=== PATIENT | female | born 1985 | race Caucasian/White ===

== ENCOUNTER → 2020-01-11 | Outpatient (CLI) | payer OTHER ==
--- NOTE | 2020-01-11 14:02 | KCIC ---
STUDY: MRI of the left knee without contrast INDICATION: Recent onset medial knee pain. COMPARISON: None. TECHNIQUE: Multiplanar MR imaging of the left knee performed without the use of intravenous or intra-articular contrast. FINDINGS: Menisci: The lateral meniscus is intact. Fluid signal is seen extending posterior to the medial meniscus posterior horn and root but meniscal morphology and signal is normal. Cruciate ligaments: Intact. Collateral ligaments: Intact medial and lateral collateral ligaments. Unremarkable IT band and retinacula. Tendons: Intact. Cartilage: Patellofemoral: Intact. Lateral compartment: Intact. Medial compartment: Intact. Bones: No fracture, focal marrow signal abnormality or subchondral marrow edema. Normal TT-TG distance. Miscellaneous: Normal volume joint fluid. No abnormal fat pad edema. Unremarkable popliteal fossa soft tissues. IMPRESSION: Intact menisci, cruciate ligaments and collateral ligaments. Collectively no abnormality is seen to account for the patient's symptoms. Electronically signed by: KATERINA SHAIKH MD (01/11/2020 1:59 PM) [id number]
== END | disposition home or self-care (01) ==
LOC: KCIC MRI 08:32
PROVIDERS: ATTEND Family Medicine
DX: M25.562 Pain in left knee (principal)
CPT/HCPCS: 73721